=== PATIENT | male | born 1995 | race American Indian/Alaskan Native ===

== ENCOUNTER 2021-10-15 12:13 | Emergency (ER) | payer SELFPAY ==
--- NOTE | 2021-10-15 13:47 | Emergency Department Report ---
ED General Adult HPI - General Chief complaint: Chest Pain Stated complaint: CHEST PAIN Time Seen by Provider: 10/15/21 13:14 Source: EMS Mode of arrival: Ambulatory Limitations: No Limitations - History of Present Illness Initial comments: 26-year-old -[place] male patient presents with complaints of substernal chest pain x2 months worsening over the past day. He states the pain occurs with movement of the chest only. He denies any shortness of breath, cough, leg pain/swelling, recent long travel//surgeries, or history of DVT/PE/cancer. No pain at this time per patient. He also denies any recent heavy lifting or chest wall trauma. No family history or personal history of heart disease per patient. No drug use per patient or other past medical history - Related Data Allergies Allergy/AdvReac Type Severity Reaction Status Date / Time No Known Allergies Allergy Verified 10/15/21 12:22 ED Review of Systems ROS: Stated complaint: CHEST PAIN Other details as noted in HPI Constitutional: denies: chills, diaphoresis, fever, malaise Respiratory: denies: cough, shortness of breath Cardiovascular: as per HPI. denies: edema, syncope Gastrointestinal: denies: abdominal pain Neurological: denies: headache, numbness, paresthesias ED Past Medical Hx - Past Medical History Previous Medical History?: No - Surgical History Past Surgical History?: No ED Physical Exam - General Limitations: No Limitations General appearance: alert, in no apparent distress - Head Head exam: Present: atraumatic, normocephalic - Eye Eye exam: Present: normal appearance - Neck Neck exam: Present: normal inspection - Respiratory Respiratory exam: Present: normal lung sounds bilaterally. Absent: respiratory distress - Cardiovascular Cardiovascular Exam: Present: regular rate, normal rhythm, clicks. Absent: systolic murmur, diastolic murmur - GI/Abdominal GI/Abdominal exam: Present: soft. Absent: tenderness - Neurological Exam Neurological exam: Present: alert, oriented X3 - Psychiatric Psychiatric exam: Present: normal affect, normal mood - Skin Skin exam: Present: warm, dry, intact, normal color. Absent: rash ED Course Vital Signs 10/15/21 12:21 Temperature 98.2 F Pulse Rate 85 Respiratory 18 Rate Blood Pressure 125/72 [Right] O2 Sat by Pulse 98 Oximetry ED Medical Decision Making - EKG Data EKG shows normal: sinus rhythm Rate: normal - EKG Data Interpretation: nonspecific ST-T wave zaina, other - Medical Decision Making 26-year-old -[place] male patient presents with complaints of substernal chest pain x2 months worsening over the past day. He states the pain occurs with movement of the chest only. He denies any shortness of breath, cough, leg pain/swelling, recent long travel//surgeries, or history of DVT/PE/cancer. No pain at this time per patient. He also denies any recent heavy lifting or chest wall trauma. No family history or personal history of heart disease per patient. No drug use per patient or other past medical history Lung exam is normal. Clicking noted on heart exam without murmurs. Regular rate and rhythm noted. Patient denies past heart history or IV drug use. Discussed findings with patient. Recommended labs and x-ray of chest, patient declines and states he would just like to get a [place] pass and leave. Unable to perform heart score. Patient to sign out AMA. Discussed in detail importance of follow-up with cardiology for echocardiogram for further evaluation of the abnormal heart sounds on exam, patient verbalizes understanding Critical care attestation.: If time is entered above; I have spent that time in minutes in the direct care of this critically ill patient, excluding procedure time. ED Disposition Clinical Impression: Other chest pain Disposition: 07 LEFT AGAINST MEDICAL ADVICE Is pt being admited?: No Condition: Stable Instructions: Nonspecific Chest Pain, Adult, [id number] Referrals: CARMEN BLANC MD [Staff Physician] - 3-5 Days
[2021-10-15 14:44] VITALS: BP 101/74
--- NOTE | 2021-10-21 20:42 | Electrocardiograph Report ---
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
== END 2021-10-15 14:44 | disposition left against medical advice (07) ==
LOC: ED 12:13
DX: R07.89 Other chest pain (principal)
CPT/HCPCS: 93005; 99283

== ENCOUNTER 2022-05-18 07:43 | Emergency (ER) | payer SELFPAY ==
[2022-05-18 07:49] VITALS: BP 142/90
== END 2022-05-18 12:57 | disposition left against medical advice (07) ==
LOC: EEVIPCON 07:43 → ED 07:43
DX: R10.9 Unspecified abdominal pain (principal); Z53.21 Procedure and treatment not carried out due to patient leaving prior to being seen by health care provider